=== PATIENT | female | born 1940 | race Caucasian/White ===

== ENCOUNTER 2016-10-25 18:39 | Emergency (ER) | payer MEDICARE ==
[2016-10-25 18:40] VITALS: BMI 26.6
[2016-10-25] MEDS ORDERED: Albuterol-Ipratrop 3 mg / 0.5 (3 ml) UD ONE (18:59)
[2016-10-25] MEDS ORDERED: Albuterol-Ipratrop 3 mg / 0.5 (3 ml) UD INH STA ×2 (19:07)
[2016-10-25 19:10] VITALS: BP 182/92; RESP 22; TEMP 98.2; O2SAT 95
--- NOTE | 2016-10-25 19:18 | C.PDOC ---
History Of Present Illness Patient presents to the emergency room with complaints of shortness of breath for 1 week. Patient was seen by her PMD, Dr. Macedo, who started her on Augmentin and Medrol pack. Patient states that she did not take her medications because she is afraid of the side effects. Patient denies any chest pain, headaches, dizziness, fever, chills, or any other complaints. Time Seen by Provider: 10/25/16 19:17 Chief Complaint (Nursing): Shortness Of Breath History Per: Patient History/Exam Limitations: no limitations Onset/Duration Of Symptoms: Other (1 week) Current Symptoms Are (Timing): Still Present Quality: denies: "Pain" Current Respiratory Medications: Other (Augmentin & Medrol pack) Severity: Mild Associated Symptoms: denies: Fever, Chills, Chest Pain Reports Recently: Treated By A Physician Recent travel outside of the [place]: No Past Medical History Reviewed: Historical Data, Nursing Documentation, Vital Signs Vital Signs: Last Vital Signs Temp 98.2 F 10/25/16 19:09 Pulse 92 H 10/25/16 19:09 Resp 22 10/25/16 19:09 BP 182/92 H 10/25/16 19:09 Pulse Ox 95 10/25/16 19:34 - Medical History PMH: Asthma, COPD, Diverticulitis (DIVERTICULOSIS), HTN Denies: Diabetes Surgical History: Endoscopy - [facility] Procedures CYSTOGRAM NEC (12/22/12) CYSTOMETROGRAM (12/22/12) RETROGRADE PYELOGRAM (01/18/13) Family History: States: No Known Family Hx - Social History Hx Tobacco Use: No Hx Alcohol Use: No Hx Substance Use: No - Immunization History Hx Tetanus Toxoid Vaccination: No Hx Influenza Vaccination: Yes Hx Pneumococcal Vaccination: No Review Of Systems Constitutional: Negative for: Fever, Chills ENT: Negative for: Throat Pain Cardiovascular: Negative for: Chest Pain Respiratory: Positive for: Shortness of Breath Gastrointestinal: Negative for: Vomiting, Abdominal Pain Genitourinary: Negative for: Dysuria Musculoskeletal: Negative for: Back Pain Skin: Negative for: Rash, Lesions, Jaundice Neurological: Negative for: Weakness, Headache, Dizziness Psych: Positive for: Anxiety Physical Exam - Physical Exam Appears: In Acute Distress (In respiratory distress) Skin: Warm, Dry Neck: Normal ROM, No Midline Cervical Tenderness, No Paracervical Tenderness, Supple Cardiovascular: Rhythm Regular Respiratory: Decreased Breath Sounds (Throughout), Wheezing (Diffuse and scattered wheezing), Other (Patient is in respiratory distress. Speaking in 1-2 word sentences.) Gastrointestinal/Abdominal: Soft, No Tenderness, No Guarding, No Rebound Back: Normal Inspection Extremity: Normal ROM, No Tenderness, No Calf Tenderness, No Swelling Extremity: Bilateral: Atraumatic, Normal Color And Temperature Neurological/Psych: Oriented x3, Normal Speech Gait: Steady ED Course And Treatment - Laboratory Results Result Diagrams: 10/25/16 19:29 10/25/16 19:29 ECG: Interpreted By Me, Viewed By Me ECG Rhythm: Sinus Rhythm (87), R BBB, Nonspecific Changes O2 Sat by Pulse Oximetry: 95 Pulse Ox Interpretation: Normal - Radiology CXR: Interpreted by Me, Viewed By Me Critical Care Time - Critical Care Note Total Time (in mins): 30 Documented critical care: time excludes all time spent performing seperately billable procedures. Disposition Discussed With : Scott Macedo Comment: accepted the pt on his service and took over the care at 8:48PM Doctor Will See Patient In The: Hospital Counseled Patient/Family Regarding: Studies Performed, Diagnosis - Disposition Disposition: HOSPITALIZED Disposition Time: 19:18 Condition: FAIR - POA Present On Arrival: None - Clinical Impression Clinical Impression: Chr obstructive pulmonary disease w/ acute lower respiratory infxn - Scribe Statement The provider has reviewed the documentation as recorded by the Scribe Linwood Wisdom Provider Scribe Attestation: All medical record entries made by the Scribe were at my direction and personally dictated by me. I have reviewed the chart and agree that the record accurately reflects my personal performance of the history, physical exam, medical decision making, and the department course for this patient. I have also personally directed, reviewed, and agree with the discharge instructions and disposition. Decision To Admit - Pt Status Changed To: Hospital Disposition Of: Inpatient - Admit Certification Admit to Inpatient:: After my assessment, the patient will require hospitalization for at least two midnights. This is because of the severity of symptoms shown, intensity of services needed, and/or the medical risk in this patient being treated as an outpatient. - InPatient: Physician Admission Certification: I certify that this patient requires 2 or more midnights of care for the following reason:: After my assessment, the patient will require hospitalization for at least two midnights. This is because of the severity of symptoms shown, intensity of services needed, and/or the medical risk in this patient being treated as an outpatient. - . Bed Request Type: Regular Admitting Physician: Scott Macedo Patient Diagnosis: Chr obstructive pulmonary disease w/ acute lower respiratory infxn
[2016-10-25] MEDS ORDERED: Albuterol-Ipratrop 3 mg / 0.5 (3 ml) UD IH SCH (19:30)
[2016-10-25 19:34] LABS: BASO # 0.3 K/uL (0.0-0.2); BASO % 1.7 % (0.0-2.0); EOS # 1.5 K/uL (0.0-0.7); EOS % 9.5 % (0.0-4.0); HEMATOCRIT 37.4 % (34.0-47.0); LYMPH # 2.1 K/uL (1.0-4.3); LYMPH % 13.4 % (20.0-40.0); MEAN CELL VOLUME 89.5 fL (81.0-99.0); MEAN CORPUSCULAR HEMOGLOBIN 29.1 pg (27.0-31.0); MEAN CORPUSCULAR HGB CONC 32.5 g/dL (33.0-37.0); MEAN PLATELET VOLUME 9.9 fL (7.2-11.7); MONO # 1.3 K/uL (0.0-0.8); MONO % 8.3 % (0.0-10.0); RED CELL DISTRIBUTION WIDTH 13.3 % (11.5-14.5)
[2016-10-25 19:40] LABS: CHLORIDE 96 mmol/L (98-107); SODIUM 132 mmol/L (132-148)
[2016-10-25 19:41] LABS: ABG ALLEN TEST POS; DRAW SITE RRADIAL
[2016-10-25 19:43] LABS: ALB/GLOB RATIO 1.1 (1.0-2.1); ALKALINE PHOSPHATASE 60 U/L (38-126); AST/SGOT 42 U/L (14-36); BILIRUBIN,TOTAL 0.5 mg/dL (0.2-1.3); BLOOD UREA NITROGEN 14 mg/dL (7-17); CARBON DIOXIDE 23 mmol/L (22-30); GFR AFRICAN-AMERICAN > 60; GLUCOSE,RANDOM 93 mg/dL (65-105); POTASSIUM 5.1 mmol/L (3.6-5.2); TOTAL PROTEIN 7.8 g/dL (6.3-8.3)
[2016-10-25 19:44] LABS: ALT/SGPT 23 U/L (9-52); CALCIUM 8.8 mg/dl (8.6-10.4); MAGNESIUM 2.2 mg/dL (1.6-2.3)
[2016-10-25] MEDS ORDERED: cefTRIAXone IV 1 gm in Dextros 50 ML IVPB ONE (20:34)
[2016-10-25] MEDS ORDERED: Azithromycin 500mg/250ML NS 250 ML IVPB SCH (21:00)
[2016-10-25 22:50] VITALS: PULSE 87
[2016-10-26] MEDS ORDERED: Albuterol-Ipratrop 3 mg / 0.5 (3 ml) UD INH SCH (02:00)
--- NOTE | 2016-10-26 07:42 | RAD ---
PROCEDURE: CHEST RADIOGRAPH, 1 VIEW HISTORY: SOB COMPARISON: Comparison is made to 05/26/2014. FINDINGS: LUNGS: Interval appearance of small opacity/infiltrate at the right lower lung. Reticular opacities are again seen more prominent at the lower lobes. PLEURA: No pneumothorax or pleural fluid seen. CARDIOVASCULAR: Normal. OSSEOUS STRUCTURES: No significant abnormalities. VISUALIZED UPPER ABDOMEN: Normal. OTHER FINDINGS: None. IMPRESSION: Suspicious for new small reticular opacity/ small infiltrate at the right lower lung. Prominent lung markings.
[2016-10-26] MEDS ORDERED: Fluticasone-Salmeterol 100-50mcg Diskus IH SCH (10:00)
[2016-10-26] MEDS ORDERED: CLONIDINE 0.1 MG PO SCH (10:00)
--- NOTE | 2016-10-31 13:33 | CARD ---
APPROVED REPORT EKG Measurement Heart [id number] AR [id number] [id number] <Conclusion> Normal sinus rhythm Left axis deviation Right bundle branch block Inferior infarct, age undetermined Abnormal ECG
== END 2016-10-25 22:47 | disposition left against medical advice (07) ==
LOC: C.ER 18:39 → C.9E 20:51 → UNDOADMIN 20:51 → C.ER 22:47
DX: J44.0 Chronic obstructive pulmonary disease with (acute) lower respiratory infection (principal)
CPT/HCPCS: 36600; 71010; 80053; 82803; 83735; 85025; 85610; 85730; 87804; 94640; 96374; 99283; J2930